=== PATIENT | female | born 1960 | race Caucasian/White ===

== ENCOUNTER 2016-12-29 10:04 | Emergency (ER) | payer OTHER ==
[~2016-12-29] VITALS: Ht 167.6 cm; Wt 100.2 kg
[~2016-12-29 10:04] MED LIST: BUPR-173 PO; BUPR-86 PO; HYDR-3307 PO; SERT100T PO
[2016-12-29 10:08] VITALS: BP 147/99
[2016-12-29] MEDS ORDERED: LIDOCAINE 1%, 20ML ONE (10:33)
[2016-12-29] MEDS ORDERED: LIDOCAINE 1%, 10ML INFIL ONE (11:00)
[2016-12-29] MEDS ORDERED: BACITRACIN ZINC OINT 500U/GM, 0.9 GM ONE (11:10)
== END 2016-12-29 11:34 | disposition home or self-care (01) ==
LOC: ED 10:32
DX: S01.451A Open bite of right cheek and temporomandibular area, initial encounter (principal); W54.0XXA Bitten by dog, initial encounter; Y93.89 Activity, other specified; Y92.89 Other specified places as the place of occurrence of the external cause; Y99.8 Other external cause status
CPT/HCPCS: 12011